=== PATIENT | male | born 1965 | race Caucasian/White ===

== ENCOUNTER 2016-12-05 04:19 | Emergency (ER) | payer OTHER ==
[~2016-12-05] VITALS: Ht 180.3 cm; Wt 83.9 kg
[~2016-12-05 04:19] MED LIST: CRESTOR20 MG PO; FENOFIBRIC ACI135 MG PO; HUMALOG100 U/ML; HYDROMORPHONE HY2 MG PO; MECLIZINE HCL25 MG PO; METFORMIN1000 MG PO; TRAMADOL50 MG PO; ZOFRAN ODT4 M1 SL
[2016-12-05] MEDS ORDERED: GEMFIBROZIL600 M1 PO (04:35)
--- NOTE | 2016-12-05 05:36 | CT SCAN REPORT ---
EXAMINATION: CT CERVICAL SPINE WITHOUT CONTRAST CLINICAL INFORMATION: Fall, neck pain COMPARISON: None. TECHNIQUE: Multidetector helical imaging was performed through the cervical spine. Coronal and sagittal reformatted images were created. DLP: 464.06 mGy-cm. FINDINGS: There is a scoliosis of the cervical spine which limits evaluation. There is straightening of the normal cervical lordosis. There is anatomic alignment of the vertebral bodies and posterior elements. Vertebral body heights are maintained. There is disc space narrowing at C5-C6. Multilevel endplate osteophytes are present, most prominently at C6-C7. Multilevel facet arthropathy is present, right greater than left. No evidence of acute fracture. No prevertebral soft tissue swelling. Visualized portions of the lung apices are described on separate dedicated chest CT. There is chronic appearing soft tissue calcification to the right of the cervicothoracic junction. The left thyroid gland is enlarged and heterogeneous, likely containing multiple nodules. IMPRESSION: Suboptimal assessment due to scoliosis. No definite acute findings. Multilevel degenerative changes.
--- NOTE | 2016-12-05 05:40 | ED MVC/FALL/TRAUMA COMPLAINT ---
History of Present Illness General Chief Complaint: Shoulder Injury Stated Complaint: S/P FALL AT WORK C/O RT SHOULDER PAIN Source: patient, old records, EMS Exam Limitations: no limitations Vital Signs & Intake/Output Vital Signs & Intake/Output Vital Signs Date Time Temp Pulse Resp B/P Pulse O2 O2 Flow FiO2 Ox Delivery Rate 12/05 0522 89 20 161/95 97 Room Air 12/05 0423 97.5 110 20 166/95 97 Room Air Allergies Coded Allergies: acetaminophen (From Percocet) (Intermediate, ITCHING 07/28/16) oxycodone (From Percocet) (Intermediate, ITCHING 07/28/16) Reconcile Medications FENOFIBRIC ACID (CHOLINE) (Fenofibric Acid) 135 MG CAPSULE.DR 1 TAB PO DAILY TRIGLYCERIDES (Reported) Gemfibrozil 600 MG TABLET 1 TAB PO BID DIRECTED (Reported) HYDROMORPHONE HCL (Hydromorphone Hydrochloride) 2 MG TABLET 1 TAB PO Q4 HRS NEEDED PRN PAIN (Reported) Insulin Lispro, Recombinant (Humalog) (Unknown Strength) CHARMAINE (Unknown Dose) DIABETES (Reported) Meclizine HCl 25 MG TABLET 1 TAB PO TIDPRN PRN vertigo METFORMIN HCL (Metformin) 1,000 MG TABLET 1 TAB PO BID DIABETES (Reported) Ondansetron (Zofran Odt) 4 MG TAB.RAPDIS 1 TAB SL TID PRN nausea Rosuvastatin Calcium (Crestor) 20 MG TABLET 1 TAB PO DAILY CHOLESTEROL ( Reported) TRAMADOL HCL (Tramadol) 50 MG TABLET 1-2 TAB PO Q6P PRN PAIN Triage Note: PT BIBA FROM WORK ([employer]) S/P MECHANICAL FALL FROM STANDING POSITION TO CONCRETE FLOOR AT APPROX 0300 THIS AM. PT DENIES LOC. ARRIVES WITH C-COLLAR IN PLACE AND SLING TO RT SHOULDER. DEFORMITY NOTED TO RT SHOULDER. PT STATES PMH OF RT CLAVICLE REMOVAL R/T CANCER HISTORY AT 13 MONTHS OLD. PT C/O TINGELING TO RT HAND, GOOD MOVEMENT TO FINGERS. DR RUBIN IN TO EVAL PT ON PT ARRIVAL TO ED. PAIN ON PALPATION TO RT SIDE OF NECK. Triage Nurses Notes Reviewed? yes Onset: Just prior to arrival Duration: minute(s):, constant, continues in ED Timing: recent history Severity: severe Injuries/Fall Location: back Method of Injury: direct blow, fall Loss of Consciousness: no loss of consciousness Modifying Factors: Worsens With: movement, palpation. Associated Symptoms: muscle spasms HPI: prior to admission patient lost balance on stairs and fell down one stair onto workbench striking his right upper back. He complains of limited range of motion of the right upper extremity severe right upper back and neck pain sharp constant worse with movement of right upper extremity nonradiating. He denies fever chills nausea vomiting diarrhea abdominal pain chest pain shortness breath headache dysuria rash bleeding change in sensory function change in bowel bladder loss consciousness Past History Travel History Traveled to [place] past 21 day No Medical History Any Pertinent Medical History? see below for history Cardiovascular: hyperlipidemia Gastrointestinal: pancreatitis Psychiatric: insomnia Endocrine: diabetes Cancer(s): UNKNOWN CA History of MRSA: No History of VRE: No History of CDIFF: No Surgical History Surgical History: none Psychosocial History Who do you live with Mother Services at Home None What is your primary language Rwandan Tobacco Use: Quit >30 days ago ETOH Use: denies use Illicit Drug Use: denies illicit drug use Family History Hx Contributory? No Review of Systems Review of Systems Constitutional: Reports: no symptoms. Eyes: Reports: no symptoms. Ears, Nose, Throat, Mouth: Reports: no symptoms. Respiratory: Reports: no symptoms. Cardiovascular: Reports: no symptoms. Gastrointestinal/Abdominal: Reports: no symptoms. Genitourinary: Reports: no symptoms. Musculoskeletal: Reports: see HPI, back pain. Skin: Reports: no symptoms. Neurological/Psychological: Reports: no symptoms. All Other Systems: Reviewed and Negative Physical Exam Physical Exam General Appearance: well developed/nourished, alert, awake, anxious, severe distress Head: atraumatic, normal appearance Eyes: Bilateral: normal appearance, PERRL, EOMI, normal inspection. Ears, Nose, Throat, Mouth: hearing grossly normal, moist mucous membrane Neck: normal inspection, supple, full range of motion, normal alignment, no midline tenderness Respiratory: normal breath sounds, no respiratory distress, quiet respiration Cardiovascular: regular rate/rhythm, normal peripheral pulses, norml femoral pulses equa Peripheral Pulses: 4+ carotid (R), 4+ carotid (L), 2+ radial (R), 2+ radial (L) Gastrointestinal: normal bowel sounds, soft, non-tender, no organomegaly Genital/Rectal: normal genital exam Back: normal inspection, no vertebral tenderness, R scapula tenderness Extremities: no ligament instability Neurologic/Psych: no motor/sensory deficits, awake, alert, oriented x 3, normal gait, normal mood/affect Skin: intact, normal color, warm/dry Core Measures ACS in differential dx? No Severe Sepsis Present: No Septic Shock Present: No Progress Differential Diagnosis: C/T/L spine injury, ext injury Plan of Care: Orders Procedure Date/time Status CT CHEST WO IV CONTRAST 12/05 0432 Active Diagnostic Imaging: Viewed by Me: CT Scan. Discussed w/RAD: CT Scan. Radiology Impression: no acute abnormality, no fracture, no dislocation Departure Departure Time of Disposition: 609 Disposition: HOME OR SELF CARE Condition: Stable Clinical Impression Primary Impression: Contusion, scapular region Qualifiers: Encounter type: initial encounter Laterality: right Qualified Code: S40.011A - Contusion of right shoulder, initial encounter Secondary Impressions: Fall due to stumbling Qualifiers: Encounter type: initial encounter Qualified Code: W01.0XXA - Fall on same level from slipping, tripping and stumbling without subsequent striking against object, initial encounter Referrals: BULMARO CHIU MD (PCP/Family) Departure Forms: Customer Survey Employee Industrial Accident General Discharge Information Prescriptions: Current Visit Scripts Hydromorphone HCl (Dilaudid) 1-2 TAB PO Q6-PRN PRN severe pain #15 TAB Ibuprofen 1 TAB PO Q6PRN PRN pain #50 TAB Baclofen 1-2 TAB PO TID PRN muscle strain #30 TAB
--- NOTE | 2016-12-05 05:48 | CT SCAN REPORT ---
EXAMINATION: CT CHEST WITHOUT CONTRAST CLINICAL INFORMATION: Fall, right scapular tenderness COMPARISON: 09/28/2014 TECHNIQUE: Multidetector volumetric CT imaging of the chest was done. Axial MIP volume rendering provided. Sagittal and coronal reformatted images were obtained. DLP: 570.11 mGy-cm. FINDINGS: LUNGS: There is subsegmental atelectasis in the right upper and lower lobes. No region of consolidation is present bilaterally. MEDIASTINUM: The left thyroid gland is enlarged, likely containing multiple nodules. There are subcentimeter mediastinal lymph nodes within the range of normal variation. Cardiac size is within normal limits; no pericardial effusion. Coronary artery calcifications are present. PLEURA: There is no pleural effusion. No pleural mass or thickening. AXILLA: No lymphadenopathy. UPPER ABDOMEN: Unremarkable. 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 No acute fracture is seen. Degenerative changes are noted in the spine. IMPRESSION: 1. No acute findings identified. 2. Enlarged left thyroid lobe. If not already performed, correlation with ultrasound is advised. 3. Coronary artery calcifications. Correlation with cardiac risk factors is recommended.
[2016-12-05] MEDS ORDERED: DILAUDID2 M1 PO (06:13)
[2016-12-05] MEDS ORDERED: BACLOFEN10 M1 PO (06:13)
[2016-12-05] MEDS ORDERED: IBUPROFEN800 M1 PO (06:13)
[2016-12-05 06:40] VITALS: BP 148/86
== END 2016-12-05 07:18 ==
LOC: ERH 04:19
DX: S40.011A Contusion of right shoulder, initial encounter (principal); W10.9XXA Fall (on) (from) unspecified stairs and steps, initial encounter
CPT/HCPCS: 96374; 96375; 96376; J3360

== ENCOUNTER 2018-01-05 10:21 | Observation (INO) | payer OTHER ==
[~2018-01-05] VITALS: Ht 180.3 cm; Wt 86.2 kg
[~2018-01-05 10:21] MED LIST changes: +BACLOFEN10 M1 PO; +DILAUDID2 M1 PO; +GEMFIBROZIL600 M1 PO; +IBUPROFEN800 M1 PO; +METFORMIN HCL1000 M1 PO; -METFORMIN1000 MG PO
[2018-01-05 11:26] LABS: ABSOLUTE BASOPHIL COUNT 0 /CUMM (0.0-0.2); ABSOLUTE EOSINOPHIL COUNT 0.4 /CUMM (0.0-0.7); ABSOLUTE GRANULOCYTE CT 4.3 /CUMM (1.4-6.5); ABSOLUTE LYMPH COUNT 2.4 /CUMM (1.2-3.4); ABSOLUTE MONOCYTE COUNT 0.4 /CUMM (0.10-0.60); BASOPHIL % 0.4 % (0.0-2.0); EOSINOPHIL % 5.7 % (0-5); GRANULOCYTE % 56.8 % (42.2-75.2); HEMATOCRIT 42.9 % (42-52); MEAN CORPUSCULAR HGB 28.1 PG (27.0-31.0); MEAN CORPUSCULAR HGB CONC 33.9 G/DL (33.0-37.0); MEAN CORPUSCULAR VOLUME 82.7 FL (80.0-94.0); MEAN PLATELET VOLUME 8.4 FL (7.4-10.4); PLATELET COUNT 220 /CUMM (130-400); RBC DISTRIBUTION WIDTH 13.1 % (11.5-14.5); RED BLOOD CELL CT 5.19 /CUMM (4.70-6.10); WHITE BLOOD CELL COUNT 7.6 /CUMM (4.8-10.8)
[2018-01-05 11:38] LABS: PTT 29 SEC (25-37)
--- NOTE | 2018-01-05 13:10 | ED GENERAL ADULT ---
History of Present Illness General Chief Complaint: General Adult Stated Complaint: PT HAS MANY PAIN COMPLAINTS/CHRONIC Source: patient Exam Limitations: no limitations Vital Signs & Intake/Output Vital Signs & Intake/Output ED Intake and Output 01/08 0000 01/07 1200 Intake Total 900 Output Total 500 Balance 400 Intake, IV 600 Intake, Oral 300 Number 0 Bowel Movements Output, Urine 500 Allergies Coded Allergies: acetaminophen (From Percocet) (Intermediate, ITCHING 07/28/16) oxycodone (From Percocet) (Intermediate, ITCHING 07/28/16) Reconcile Medications Cholecalciferol (Vitamin D3) 1,000 UNIT TABLET 1 TAB PO DAILY VITAMIN SUPPORT (Reported) Dexamethasone 4 MG TABLET 4 MG PO BID Steroid pack . Gabapentin 300 MG CAPSULE 1 CAP PO AT BEDTIME PAIN . Insulin Degludec (Tresiba Flextouch U-200) 200 UNIT/ML (3 ML) INSULN.PEN DIABETES (Reported) Lisinopril 40 MG TABLET 1 TAB PO DAILY HEART (Reported) Metformin HCl 1,000 MG TABLET 1 TAB PO BID DIABETES (Reported) Pregabalin (Lyrica) 50 MG CAPSULE 50 MG PO TID Neuropathic pain . Triage Note: 52 YO MALE TO TRIAGE C/O PAIN TO NECK AND "I HAVE A R ARM, IT DOESNT WORK" STATES ARM HAS BEEN LIKE THAT FOR APPROX 1 YEARS, STATES HX OF DISC PROBLEMS IN HIS NECK. STATES HAS BEEN SEEING ORTHO WHO WANTS HIM TO SEE A NEUROSURGEON BUT HE CANNOT WAIT D/T THE PAIN. PA IN TRIAGE TO SEE PT. Triage Nurses Notes Reviewed? yes Onset: Gradual Duration: week(s): Timing: recent history Severity: moderate HPI: 52yo male presents to ED complaining of neck pain, back pain, headache worsening over the past few weeks. Patient states he's been seeing orthopedic and is in touch with the neurologist for the pain is so severe. 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 Patient states that over time he has been unable to use his right arm. Patient also reports increasing neck and back pain related to "shifting of his spine". Patient has not been able to use his right arm for years however reports that over the past 2 weeks the pain is worsening. Patient denies recent fall or injury, visual changes, abdominal pain, vomiting. (Kimberly Jo-Ann HARGROVE) Past History Travel History Traveled to [place] past 21 day No Medical History Any Pertinent Medical History? see below for history Cardiovascular: hyperlipidemia Gastrointestinal: pancreatitis Psychiatric: insomnia Endocrine: diabetes Cancer(s): UNKNOWN CA History of MRSA: No History of VRE: No History of CDIFF: No Surgical History Surgical History: none Psychosocial History Who do you live with Mother Services at Home None What is your primary language Setswana Tobacco Use: Never used Family History Hx Contributory? No (Jo-Ann Manjarrez) Review of Systems Review of Systems Constitutional: Reports: no symptoms. EENTM: Reports: no symptoms. Respiratory: Reports: no symptoms. Cardiovascular: Reports: no symptoms. GI: Reports: no symptoms. Genitourinary: Reports: no symptoms. Musculoskeletal: Reports: see HPI. Skin: Reports: no symptoms. Neurological/Psychological: Reports: see HPI. Hematologic/Endocrine: Reports: no symptoms. Immunologic/Allergic: Reports: no symptoms. All Other Systems: Reviewed and Negative (Jo-Ann Manjarrez) Physical Exam Physical Exam General Appearance: well developed/nourished, no apparent distress, alert, awake Head: atraumatic, normal appearance Eyes: Bilateral: normal appearance. Ears, Nose, Throat: hearing grossly normal Neck: right healed surgical incisions, right lateral malalignment of spine, tenderness to c-spine Respiratory: normal breath sounds, no respiratory distress, lungs clear Cardiovascular: regular rate/rhythm Peripheral Pulses: 2+ radial (R), 2+ radial (L) Gastrointestinal: normal bowel sounds, soft, non-tender, no organomegaly Back: normal inspection Extremities: limited ROM to RUE, extremity with intact capillary refill, no cyanosis or discoloration, diminished sensation to distal extremity in glove distribution Neurologic/Psych: awake, alert, oriented x 3, diminished sensation in glove distribution to right upper extremity Skin: intact, normal color, warm/dry (Jo-Ann Manjarrez) Core Measures ACS in differential dx? No CVA/TIA Diagnosis: No Sepsis Present: No Sepsis Focused Exam Completed? No (Rosendo Maldonado DO) Progress Differential Diagnoses I considered the following diagnoses in my evaluation of the patient: [ Subclavian steel syndrome, arterial insufficiency, spinal stenosis, cervical spine fracture, spinal cord injury, nerve compression, ICH] Diagnostic Imaging: Viewed by Me: CT Scan. Discussed w/RAD: CT Scan. Radiology Impression: PATIENT: LORRAINE HOSKINS PRESENT AGE: 52 PATIENT ACCOUNT NO: [id number] : 65 LOCATION: ER ORDERING PHYSICIAN: Jerod HARGROVE SERVICE DATE: 01/05/18 EXAM TYPE: CAT - CT HEAD WO IV CONTRAST EXAMINATION: CT HEAD WITHOUT CONTRAST CLINICAL INFORMATION: Headache COMPARISON: CT head from 07/04/2011 TECHNIQUE: Contiguous axial imaging was performed from the skull base to vertex without intravenous administration of contrast. DLP: 1255 mGy-cm FINDINGS: There is no evidence of acute intracranial hemorrhage or evolving territorial infarction. No abnormal mass effect or midline shift is seen. Garrett to white matter differentiation is well preserved. No extra-axial fluid collections are identified. The ventricles are normal in size. There is no abnormal attenuation within the brain parenchyma. The osseous structures and soft tissues are unremarkable. The orbits are unremarkable. Opacification of right posterior ethmoid air cells. Other visualized paranasal sinuses are clear. No mastoid effusion. IMPRESSION: No acute intracranial pathology. Mild inflammatory paranasal sinus disease with opacification of the right posterior ethmoid air cells. DICTATED BY: Layne López MD DATE/TIME DICTATED:01/05/181327 SCHOOL OPERATIONS MANAGER:KAYE DATE/ TIME TRANSCRIBED:01/05/181327 CONFIDENTIAL, DO NOT COPY WITHOUT APPROPRIATE AUTHORIZATION. <Electronically signed in Other Vendor System> SIGNED BY: Layne López MD 01/05/18 1343, PATIENT: LORRAINE HOSKINS PRESENT AGE: 52 PATIENT ACCOUNT NO: [id number] : 65 LOCATION: [facility] ORDERING PHYSICIAN: Jerod HARGROVE SERVICE DATE: 01/05/18 EXAM TYPE : CAT - CT UPPER EXT ANGIOGRAM EXAMINATION: CT ANGIOGRAM UPPER EXTREMITY, right side CLINICAL INFORMATION: 52-year-old male patient with right arm weakness and right arm discoloration. Cyanotic extremity. COMPARISON: None applicable. TECHNIQUE: 125 Optiray 350 intravenous contrast. Initial scans were obtained of the aortic arch following bolus injection of contrast for timing purposes. The patient's right shoulder was abducted and the right elbow flexed 90 degrees. Scans were obtained with particular reference to the arterial circulation of the right upper extremity. Raw data was sent to the 3-D lab for 3-D MIP volume reconstructions. DLP: 537 mGy-cm FINDINGS: Vasculature: 1. Brachiocephalic trunk : Distal to the origin of the artery there is complete absence of flow at the level of the sternal manubrial joint. Intraluminal clot formation is seen. 2. Internal thoracic artery: Reconstituted. 3. Right subclavian artery: There is no flow in the proximal right subclavian artery. Extensive calcific plaque is present. 4. Right common carotid artery: Severe calcific plaques and severe stenosis from the origin to the level of the hyoid bone. Contrast is seen to flow in an attenuated right internal carotid artery into the brain. 5. Right vertebral artery: Absent flow in the prespinal vertebral artery with reconstitution in the intraspinal portion 6. Right thyrocervical trunk: 7. Transverse cervical artery: Nonopacified. 8. Right axillary artery: Flow is reconstituted. 9. Right brachial artery: Well patent. 10. Radial artery: Well patent. 11. Ulnar artery: Proximal portion well patent. Distal portion decreased to absent flow. 12. Anterior and posterior interosseous arteries: Patent. Other: Visualized portions of the pulmonary arteries are well patent showing no clot formation. The left vertebral artery is dominant. The right lobe the thyroid gland is absent. The left lobe is enlarged containing numerous thyroid nodules. Lungs are clear. Visualized portions of the intracranial contents are normal. Most of the right clavicle is absent. Numerous calcified lymph nodes are present in the right supraclavicular region. IMPRESSION: Granted, due to the abduction of the right upper extremity, there is compression applied to the right subclavian artery. This accentuates lack of flow in the subclavian and brachiocephalic trunk. Severe compromise of blood flow in the right subclavian artery is present in the artery contains numerous calcific plaques. The axillary , brachial, radial and ulnar arteries are reconstituted with normal flow although the flow in the ulnar artery is diminished. Interosseous arteries appear patent. DICTATED BY: Zan Cochran MD DATE/TIME DICTATED:01/05/181441 SCHOOL OPERATIONS MANAGER:KAYE DATE/TIME TRANSCRIBED:01/05/181441 CONFIDENTIAL, DO NOT COPY WITHOUT APPROPRIATE AUTHORIZATION. <Electronically signed in Other Vendor System> SIGNED BY: Zan Cochran MD 01/05/18 1530 Initial ED EKG: sinus rhythm @90bpm,RBBB, LAFB, nonspecific ST changes Prior EKG: unchanged (07/28/16) (Kimberly HARGROVE,Jo-Ann Willard) Plan of Care: Orders Procedure Date/time Status FingerStick- Glucose 01/05 1328 Active TROPONIN LEVEL 01/05 1039 Complete PARTIAL THROMBOPLASTIN TIME 01/05 1039 Complete PROTHROMBIN TIME 01/05 1039 Complete COMPREHENSIVE METABOLIC PANEL 01/05 1039 Complete CBC WITHOUT DIFFERENTIAL 01/05 1039 Complete EKG 01/05 1039 Active Laboratory Tests 01/05/18 1120: Anion Gap 12, Estimated GFR > 60, BUN/Creatinine Ratio 23.3, Glucose 341 H, Calcium 10.3 H, Total Bilirubin 0.6, AST 18, ALT 25, Alkaline Phosphatase 92, Troponin I < 0.01, Total Protein 7.1, Albumin 4.2, Globulin 2.9, Albumin/ Globulin Ratio 1.4, PT 11.0, INR 1.05, APTT 29, CBC w Diff NO MAN DIFF REQ, RBC 5.19, MCV 82.7, MCH 28.1, MCHC 33.9, RDW 13.1, MPV 8.4, Gran % 56.8, Lymphocytes % 31.7, Monocytes % 5.4, Eosinophils % 5.7 H, Basophils % 0.4, Absolute Granulocytes 4.3, Absolute Lymphocytes 2.4, Absolute Monocytes 0.4, Absolute Eosinophils 0.4, Absolute Basophils 0 Spoke with vascular regarding this patient and his abnormal CT scan findings, they will send PA to examine the patient. Surgical PA Jaden present to see and evaluate patient. Radial and ulnar Doppler studies show intact distal pulses to right upper extremity. Extremity shows good skin coloration. Per vascular consult, this extremity is not acutely vascularly compromised, CT scan with evidence for chronic vascular conditions. Given patient's recent worsening of symptoms this patient requires cervical spine MRI and neurosurgical consult for possible acute cervical disc pathology. This patient is requiring IV pain medications, despite several doses of IV Dilaudid patient is in persistent pain. Patient suffered comfortable going home given this persistent pain. The patient was discussed with Dr. Maldonado, Dr. Maldonado present to see and evaluate patient. He recommends inpatient observation for MRI and neurosurgical consult. Dr. broderick spoke with Dr. Coronel regarding this patient's general medicine observation. (Jo-Ann Manjarrez) (Rosendo Maldonado DO) Departure Departure Disposition: STILL A PATIENT Condition: Stable Clinical Impression Primary Impression: Intractable pain Referrals: Michael Preston MD (PCP/Family) Departure Forms: Customer Survey General Discharge Information Prescriptions: Current Visit Scripts Gabapentin 1 CAP PO AT BEDTIME #30 CAP . Pregabalin (Lyrica) 50 MG PO TID #90 CAP . Dexamethasone 4 MG PO BID #3 TAB . (Jo-Ann Manjarrez) Observation Note Spoke With: Adriel LEWIS,Rosariohenrique Physician Advisor Notified: SUNITHA LEWIS,GABBY Ho Place Patient In: Non-ED OBS Care Area Rationale for Observation: My rational for observation is as follows [she needs admission for IV pain medication, consider neurosurgical consultation, inpatient MRI. He was unable to be sent home to the severity of his pain]. PA/SCHOOL OPERATIONS MANAGER Co-Sign Statement Statement: ED Attending supervision documentation- [X] I saw and evaluated the patient. I have also reviewed all the pertinent lab results and diagnostic results. I agree with the findings and the plan of care as documented in the PA's/SCHOOL OPERATIONS MANAGER's documentation. [] I have reviewed the ED Record and agree with the PA's/SCHOOL OPERATIONS MANAGER's documentation. [] Additions or exceptions (if any) to the PAs/SCHOOL OPERATIONS MANAGER's note and plan are summarized below: [] (Rosendo Maldonado DO) Critical Care Note Critical Care Note Critical Care Time: non-applicable (Rosendo Maldonado DO)
--- NOTE | 2018-01-05 13:43 | CT SCAN REPORT ---
EXAMINATION: CT HEAD WITHOUT CONTRAST CLINICAL INFORMATION: Headache COMPARISON: CT head from 07/04/2011 TECHNIQUE: Contiguous axial imaging was performed from the skull base to vertex without intravenous administration of contrast. DLP: 1255 mGy-cm FINDINGS: There is no evidence of acute intracranial hemorrhage or evolving territorial infarction. No abnormal mass effect or midline shift is seen. Garrett to white matter differentiation is well preserved. No extra-axial fluid collections are identified. The ventricles are normal in size. There is no abnormal attenuation within the brain parenchyma. The osseous structures and soft tissues are unremarkable. The orbits are unremarkable. Opacification of right posterior ethmoid air cells. Other visualized paranasal sinuses are clear. No mastoid effusion. IMPRESSION: No acute intracranial pathology. Mild inflammatory paranasal sinus disease with opacification of the right posterior ethmoid air cells.
[2018-01-05] MEDS ORDERED: LISINOPRIL40 M1 PO (14:11)
[2018-01-05] MEDS ORDERED: TRESIBA FL200 UNIT/1 SC (14:12)
[2018-01-05] MEDS ORDERED: VITAMIN D31000 UNI2 PO (14:12)
--- NOTE | 2018-01-05 15:30 | CT SCAN REPORT ---
EXAMINATION: CT ANGIOGRAM UPPER EXTREMITY, right side CLINICAL INFORMATION: 52-year-old male patient with right arm weakness and right arm discoloration. Cyanotic extremity. COMPARISON: None applicable. TECHNIQUE: 125 Optiray 350 intravenous contrast. Initial scans were obtained of the aortic arch following bolus injection of contrast for timing purposes. The patient's right shoulder was abducted and the right elbow flexed 90 degrees. Scans were obtained with particular reference to the arterial circulation of the right upper extremity. Raw data was sent to the 3-D lab for 3-D MIP volume reconstructions. DLP: 537 mGy-cm FINDINGS: Vasculature: 1. Brachiocephalic trunk: Distal to the origin of the artery there is complete absence of flow at the level of the sternal manubrial joint. Intraluminal clot formation is seen. 2. Internal thoracic artery: Reconstituted. 3. Right subclavian artery: There is no flow in the proximal right subclavian artery. Extensive calcific plaque is present. 4. Right common carotid artery: Severe calcific plaques and severe stenosis from the origin to the level of the hyoid bone. Contrast is seen to flow in an attenuated right internal carotid artery into the brain. 5. Right vertebral artery: Absent flow in the prespinal vertebral artery with reconstitution in the intraspinal portion 6. Right thyrocervical trunk: 7. Transverse cervical artery: Nonopacified. 8. Right axillary artery: Flow is reconstituted. 9. Right brachial artery: Well patent. 10. Radial artery: Well patent. 11. Ulnar artery: Proximal portion well patent. Distal portion decreased to absent flow. 12. Anterior and posterior interosseous arteries: Patent. Other: Visualized portions of the pulmonary arteries are well patent showing no clot formation. The left vertebral artery is dominant. The right lobe the thyroid gland is absent. The left lobe is enlarged containing numerous thyroid nodules. Lungs are clear. Visualized portions of the intracranial contents are normal. Most of the right clavicle is absent. Numerous calcified lymph nodes are present in the right supraclavicular region. IMPRESSION: Granted, due to the abduction of the right upper extremity, there is compression applied to the right subclavian artery. This accentuates lack of flow in the subclavian and brachiocephalic trunk. Severe compromise of blood flow in the right subclavian artery is present in the artery contains numerous calcific plaques. The axillary, brachial, radial and ulnar arteries are reconstituted with normal flow although the flow in the ulnar artery is diminished. Interosseous arteries appear patent.
--- NOTE | 2018-01-05 18:35 | Cons- Vascular Surgery ---
General Information and HPI Consulting Request Date of Consult: 01/05/18 Requested By: Emergency department Reason for Consult: Increased right arm pain since with documented CTA of right upper extremity demonstrating extensive subclavian plaque causing possible occlusion Exam Limitations: clinical condition History of Present Illness: Mr. Burks is a 52-year-old male known to Dr. Yang, Dr. Clarke, Dr. 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 He was seen in 2012 for similar symptoms at which time he was transferred to [place] for neurosurgical evaluation transfer resulted only in a carpal tunnel release of the right wrist. However since then he has had a worsening debilitating right upper extremity weakness and numbness which has been well documented by Dr. Clarke. He currently presents to the emergency room today with worsening right upper extremity pain or the entire right arm. He states that his current right upper extremity weakness is something that has been there for many years. Evaluation by the emergency room staff revealed no palpable pulses so and right upper extremity CTA was obtained which demonstrated extensive plaque and narrowing of right subclavian artery. Vascular surgery was consult for these findings Allergies/Medications Allergies: Coded Allergies: acetaminophen (From Percocet) (Intermediate, ITCHING 07/28/16) oxycodone (From Percocet) (Intermediate, ITCHING 07/28/16) Home Med List: Cholecalciferol (Vitamin D3) 1,000 UNIT TABLET 1 TAB PO DAILY VITAMIN SUPPORT (Reported) Insulin Degludec (Tresiba Flextouch U-200) 200 UNIT/ML (3 ML) INSULN.PEN DIABETES (Reported) Lisinopril 40 MG TABLET 1 TAB PO DAILY HEART (Reported) Metformin HCl 1,000 MG TABLET 1 TAB PO BID DIABETES (Reported) Past History Medical History Cardiovascular: hyperlipidemia Gastrointestinal: pancreatitis Psychiatric: insomnia Endocrine: diabetes Cancer(s): UNKNOWN CA Surgical History Pertinent Surgical History: 1 Psychosocial History Services at Home: None Exam & Diagnostic Data Vital Signs and I&O Vital Signs Date Time Temp Pulse Resp B/P B/P Pulse O2 O2 Flow FiO2 Mean Ox Delivery Rate 01/05 1759 97.2 96 18 102/62 95 Room Air 01/05 1510 98.4 83 18 156/96 92 Room Air 01/05 1332 Room Air 01/05 1033 98.2 96 18 118/76 98 Room Air Intake & Output 01/05 1600 01/05 0800 01/05 0000 01/04 1600 01/04 0801/04 0000 Intake Total Output Total Balance Patient 190 lb Weight Weight Reported by Patient Measurement Method Physical Exam General Appearance: alert, awake, moderate distress Head: normal appearance Eyes: Bilateral: PERRL. Neck: extensive scarring to the right neck and chest and scapula secondary to previous radical neck dissection for malignant tumor as a child Respiratory: lungs clear Cardiovascular: regular rate/rhythm Gastrointestinal: soft, non-tender Extremities: glovelike distribution in sensate right mid forearm to tips of fingers, 2 over 5 elbow flexion, flaccid right wrist extension, Doppler radial/ ulnar/brachial pulses, color and warmth to right upper extremity similar to left Last 24 Hours of Labs: Laboratory Tests 01/05 1120 Chemistry Sodium (137 - 145 mmol/L) 138 Potassium (3.5 - 5.1 mmol/L) 4.6 Chloride (98 - 107 mmol/L) 95 L Carbon Dioxide (22 - 30 mmol/L) 31 H Anion Gap (5 - 16) 12 BUN (9 - 20 mg/dL) 21 H Creatinine (0.7 - 1.2 mg/dL) 0.9 Estimated GFR (>60 ml/min) > 60 BUN/Creatinine Ratio (7 - 25 %) 23.3 Glucose (65 - 99 mg/dL) 341 H Calcium (8.4 - 10.2 mg/dL) 10.3 H Total Bilirubin (0.2 - 1.3 mg/dL) 0.6 AST (17 - 59 U/L) 18 ALT (21 - 72 U/L) 25 Alkaline Phosphatase (< 127 U/L) 92 Troponin I (<0.11 ng/ml) < 0.01 Total Protein (6.3 - 8.2 g/dL) 7.1 Albumin (3.5 - 5.0 g/dL) 4.2 Globulin (1.9 - 4.2 gm/dL) 2.9 Albumin/Globulin Ratio (1.1 - 2.2 %) 1.4 Coagulation PT (9.4 - 12.5 SEC) 11.0 INR (0.90 - 1.17) 1.05 APTT (25 - 37 SEC) 29 Hematology CBC w Diff NO MAN DIFF REQ WBC (4.8 - 10.8 /CUMM) 7.6 RBC (4.70 - 6.10 /CUMM) 5.19 Hgb (14.0 - 18.0 G/DL) 14.6 Hct (42 - 52 %) 42.9 MCV (80.0 - 94.0 FL) 82.7 MCH (27.0 - 31.0 PG) 28.1 MCHC (33.0 - 37.0 G/DL) 33.9 RDW (11.5 - 14.5 %) 13.1 Plt Count (130 - 400 /CUMM) 220 MPV (7.4 - 10.4 FL) 8.4 Gran % (42.2 - 75.2 %) 56.8 Lymphocytes % (20.5 - 51.1 %) 31.7 Monocytes % (1.7 - 9.3 %) 5.4 Eosinophils % (0 - 5 %) 5.7 H Basophils % (0.0 - 2.0 %) 0.4 Absolute Granulocytes (1.4 - 6.5 /CUMM) 4.3 Absolute Lymphocytes (1.2 - 3.4 /CUMM) 2.4 Absolute Monocytes (0.10 - 0.60 /CUMM) 0.4 Absolute Eosinophils (0.0 - 0.7 /CUMM) 0.4 Absolute Basophils (0.0 - 0.2 /CUMM) 0 Imaging Results: SERVICE DATE: 01/05/18 EXAM TYPE: CAT - CT UPPER EXT ANGIOGRAM EXAMINATION: CT ANGIOGRAM UPPER EXTREMITY, right side CLINICAL INFORMATION: 52-year-old male patient with right arm weakness and right arm discoloration. Cyanotic extremity. COMPARISON: None applicable. TECHNIQUE: 125 Optiray 350 intravenous contrast. Initial scans were obtained of the aortic arch following bolus injection of contrast for timing purposes. The patient's right shoulder was abducted and the right elbow flexed 90 degrees. Scans were obtained with particular reference to the arterial circulation of the right upper extremity. Raw data was sent to the 3-D lab for 3-D MIP volume reconstructions. DLP: 537 mGy-cm FINDINGS: Vasculature: 1. Brachiocephalic trunk: Distal to the origin of the artery there is complete absence of flow at the level of the sternal manubrial joint. Intraluminal clot formation is seen. 2. Internal thoracic artery: Reconstituted. 3. Right subclavian artery: There is no flow in the proximal right subclavian artery. Extensive calcific plaque is present. 4. Right common carotid artery: Severe calcific plaques and severe stenosis from the origin to the level of the hyoid bone. Contrast is seen to flow in an attenuated right internal carotid artery into the brain. 5. Right vertebral artery: Absent flow in the prespinal vertebral artery with reconstitution in the intraspinal portion 6. Right thyrocervical trunk: 7. Transverse cervical artery: Nonopacified. 8. Right axillary artery: Flow is reconstituted. 9. Right brachial artery: Well patent. 10. Radial artery: Well patent. 11. Ulnar artery: Proximal portion well patent. Distal portion decreased to absent flow. 12. Anterior and posterior interosseous arteries: Patent. Other: Visualized portions of the pulmonary arteries are well patent showing no clot formation. The left vertebral artery is dominant. The right lobe the thyroid gland is absent. The left lobe is enlarged containing numerous thyroid nodules. Lungs are clear. Visualized portions of the intracranial contents are normal. Most of the right clavicle is absent. Numerous calcified lymph nodes are present in the right supraclavicular region. IMPRESSION: Granted, due to the abduction of the right upper extremity, there is compression applied to the right subclavian artery. This accentuates lack of flow in the subclavian and brachiocephalic trunk. Severe compromise of blood flow in the right subclavian artery is present in the artery contains numerous calcific plaques. The axillary, brachial, radial and ulnar arteries are reconstituted with normal flow although the flow in the ulnar artery is diminished. Interosseous arteries appear patent. DICTATED BY: Zan Cochran MD DATE/TIME DICTATED:01/05/181441 ELECTRIC ORGAN ASSEMBLER AND CHECKER:KAYE DATE/TIME TRANSCRIBED:01/05/181441 Assessment/Plan Assessment/Plan Mr. Burks is a 52-year-old male with a known documented history of right artery narrowing and plaque formation secondary to extensive radical neck dissection for malignant tumor as a child. His vascular health has been known in documented by Dr. Yang who has referred this patient to Dr. Clarke for known cervical stenosis. This case was discussed with Dr. Strong who based on imaging and my physical exam believes that that this is not a limb that is compromised vascularly. This does however present more like an exacerbation of his known cervical stenosis which could be addressed with MRI of the cervical spine. Relative to his vascular diagnosis Dr. delgado and recommends aspirin twice a day prevention and follow-up with neurosurgery for his probable cervical stenosis exacerbation. Consult Acknowledgment - Thank you for your consult request.
--- NOTE | 2018-01-06 00:28 | History & Physical ---
Ivette LEWIS,Jennifer 01/06/18 0028: General Information and HPI MD Statement: I have seen and personally examined LORRAINE HOSKINS and documented this H&P. The patient is a 52 year old M who presented with a patient stated chief complaint of [neck pain, right arm weakness]. Source of Information: patient, old records Exam Limitations: clinical condition History of Present Illness: 52 years old male with past medical history of IDDM, hypertriglyceridemia, multiple episodes of pancreatitis, TORIN, and history of right clavicle removal and chest wall reconstruction for malignant tumor as a child, comes to the ED complaining of worsening pain in his neck and the back of his head, 08/25, for which the patient was prescribed dilaudid by . Patient reports not using the dilaudid at home. He also complains of progressive weakness of his right arm. Patient follow-up with orthopedic Dr. Garcia , and also he see a neurosurgeon in-year-old however he is trying to see a new neurosurgeon in [place] to find out about possible surgical treatment of his condition, pt reports arked worsening of his RUE weakness, currently he is having troubles doing his ADL as dressing and eating using his right arm, he lives home alone and doesn't have any aid Reports being noncompliant with his antidiabetic home meds, his blood sugar is not controlled and he complains of bilateral numbness of his lower extremity. Physical course: Vital signs within normal limits Labs were significant for normal C BC, sodium and potassium within normal limits , glucose 341, calcium 10.3 CTA showed clot in the right subclavian and brachiocephalic artery, with a new calcified plaque Vascular surgery saw the patient in the ED they recommend to get MRI of cervical spine, aspirin 3 times a day, follow-up with neurosurgery Allergies/Medications Allergies: Coded Allergies: acetaminophen (From Percocet) (Intermediate, ITCHING 07/28/16) oxycodone (From Percocet) (Intermediate, ITCHING 07/28/16) Home Med list Cholecalciferol (Vitamin D3) 1,000 UNIT TABLET 1 TAB PO DAILY VITAMIN SUPPORT (Reported) Insulin Degludec (Tresiba Flextouch U-200) 200 UNIT/ML (3 ML) INSULN.PEN DIABETES (Reported) Lisinopril 40 MG TABLET 1 TAB PO DAILY HEART (Reported) Metformin HCl 1,000 MG TABLET 1 TAB PO BID DIABETES (Reported) Past History Travel History Traveled to [place] past 21 day No Medical History Cardiovascular: hyperlipidemia Gastrointestinal: pancreatitis Psychiatric: insomnia Endocrine: diabetes Cancer(s): UNKNOWN CA History of MRSA: No History of VRE: No History of CDIFF: No Surgical History Surgical History: none Past Family/Social History Psychosocial History Services at Home: None Review of Systems Review of Systems Constitutional: Reports: malaise, weakness. Cardiovascular: Denies: no symptoms. Respiratory: Denies: no symptoms, cough, hemoptysis, orthopnea, short of breath. GI: Denies: abdominal pain, bloating, diarrhea, melena, nausea, vomiting. Musculoskeletal: Reports: see HPI, back pain, muscle pain. Skin: Denies: no symptoms. Exam & Diagnostic Data Last 24 Hrs of Vital Signs/I&O Vital Signs Date Time Temp Pulse Resp B/P B/P Pulse O2 O2 Flow FiO2 Mean Ox Delivery Rate 01/05 1759 97.2 96 18 102/62 95 Room Air 01/05 1510 98.4 83 18 156/96 92 Room Air 01/05 1332 Room Air 01/05 1033 98.2 96 18 118/76 98 Room Air Intake & Output 01/06 0800 01/06 0000 01/05 1600 Intake Total Output Total Balance Patient 190 lb Weight Weight Reported by Patient Measurement Method Physical Exam General Appearance Alert, Oriented X3, Cooperative, Mild Distress Skin No Rashes, No Breakdown, No Significant Lesion HEENT Atraumatic, PERRLA, EOMI, Mucous Membr. moist/pink Neck very stiff with scar of old graft Cardiovascular Normal S1, Normal S2, No Murmurs Lungs Clear to Auscultation Abdomen Normal Bowel Sounds, Soft, No Tenderness Neurological Normal Speech, right UL weakness power is 2/5 loss of sensation, bilateral LE loss of sensation, motor power intact Extremities No Clubbing, No Cyanosis, No Edema Vascular weak right radial pulses Sepsis Peripheral Pulse Location: Dorsalis Pedis Assessment/Plan Assessment: 52 years old male with past medical history of IDDM, hypertriglyceridemia, multiple episodes of pancreatitis, TORIN, and history of right clavicle removal and chest wall reconstruction for malignant tumor as a child, comes to the ED complaining of worsening pain in his neck and the back of his head, 08/25, for which the patient was prescribed dilaudid by Dr.Moll, #Right subclavian and brachiocephalic occlusion: CTA showed clot in the right subclavian and brachiocephalic artery, with a new calcified plaque Vascular surgery saw the patient in the ED they recommend to get MRI of cervical spine, aspirin 2 times a day, follow-up with neurosurgery ObserveThe patient on Gen. medical floor Pain control with IV Dilaudid 1 mg every 3 when necessary Start Lyrica 50 mg 3 times a day PT consult in the a.m. Neurosurgery consult in the a.m. Vitals every shift #Insulin dependent Diabetes DC metformin Insulin sliding scale Fingerstick glucose Full code DVT prophylaxis with subcutaneous Lovenox Consistent carbohydrate diet As Ranked By This Provider Problem List: 1. Intractable pain 2. Diabetes Core Measures/Misc (08/02) Acute Coronary Syndrome ACS Diagnosis: No Congestive Heart Failure Congestive Heart Failure Diagnosis No Cerebrovascular Accident CVA/TIA Diagnosis: No VTE (View Protocol) VTE Risk Factors Age>40 No Mechanical VTE Prophylaxis d/t N/A MechProphylax Ordered No VTE Pharm Prophylaxis d/t NA PharmProphylax ordered Sepsis (View protocol) Sepsis Present: No Adriel LEWIS, [facility] 01/06/18 0215: Attending MD Review Statement Attending Statement Attending MD Statement: examined this patient, discuss w/resident/PA/DAIRY DEPARTMENT MANAGER, agreed w/resident/PA/DAIRY DEPARTMENT MANAGER, reviewed images, amended to note Attending Assessment/Plan: 52 yo M with h/o DM with neuropathy, hyper TG, radical dissection of right clavicle and 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 Patient has been following with Neurosurgery [facility], Vascular and Ortho [facility], but no definitive treatment yet. He has been evaluated at [facility] and they denied any acute intervention given high risk of surgery and permanent damage. On ER eval, he had no palpable pulse, dopplerable pulse+, CTA showed extensive plaque and narrowing of right subclavian artery Vascular was consulted, they think it is exacerbation of his cervical stenosis. VSS. Right upper extremity: power 1-2/5, loss of sensation right forearm. Labs glucose 341, calcium 10.3. Trop neg. Head CT: no acute pathology. CTA upper extremity severe compromise of blood flow in right subclavian artery and numerous calcific plaques present. EKG: SR, RBBB, LAFB, no acute changes. Assessment and plan: 1. Chronic right upper extremity weakness and pain 2. Exacerbation of cervical stenosis 3. Right subclavian artery stenosis and calcific plaques 4. History of diabetes with neuropathy 5. H/o malignant neck tumor resection - 23 hour observation on general medicine - Neurochecks - Initiate lyrica TID - Pain management with motrin and dilaudid - MRI cervical spine - Neurosurgery consult - Vascular consult - Aspirin BID - PT/OT therapy - Diabetes management - Resume lisinopril DVT ppx Lovenox. Full code. Observation Initial Note - I have personally examined LORRAINE HOSKINS on 01/06/18 at 0216. The disposition of LORRAINE HOSKINS is uncertain at this time and before a determination can be made, he requires a period of observation for the following reasons [Acute on chronic neck pain, with possible worsening of cervical stenosis.] Gurpreet Rhodes 01/06/18 0504: Resident Review Statement Resident Statement: examined this patient, discussed with healthcare administration internship, agreed with healthcare administration internship, reviewed EMR data (avail), discussed with nursing, discussed with case mgmt, reviewed images, amended to note Other Findings: This is 52 years old male with medical history of IDDM, hypertriglyceridemia, multiple episodes of pancreatitis, TORIN, and surgical history of extensive radical dissection of right clavicle 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 Presented to the emergency department due to complaining of worsening pain in his neck and the back of his head. he still c/o his worsening debilitating right upper extremity weakness and numbness. CTA was obtained which demonstrated extensive plaque and narrowing of right subclavian artery. the patient was prescribed 4 mg PRN 4-6 HR dilaudid at home by . Patient currently not on any pain medication as last time was almost a year when he was prescribed Dilaudid. Vascular surgeon evaluate the patient in the ED and they stated no vascular emergencies or intervention to be done now, and the patient can follow-up as an outpatient with them and with the neurosurgeon as they think his presentation is likely due to cervical stenosis exacerbation. Physical examination, lab and imaging as above. Problem list: -Severe pain due to cervical stenosis -compression applied to the right subclavian artery -Generalized weakness -Hyperglycemia Plan: -Admit patient to general medicine floor -Vitals every shift -Start the patient on Lyrica 50 mg 3 times a day -1 mg IV Dilaudid every 3 as needed for severe pain -Patient will need MRI for further evaluation and assessment. -Neurosurgery consultation in a.m. -Physical therapy consultation in a.m. -Carbohydrate consistent diet, Accu-Chek, insulin sliding scale -Hold off metformin, Continue home medication -Pain pathway -DVT prophylaxis: subcutaneous Lovenox -Full code
[2018-01-06 04:00] VITALS: BP 132/80
[2018-01-06 08:10] LABS: ABSOLUTE BASOPHIL COUNT 0 /CUMM (0.0-0.2); ABSOLUTE EOSINOPHIL COUNT 0.2 /CUMM (0.0-0.7); ABSOLUTE GRANULOCYTE CT 5.7 /CUMM (1.4-6.5); ABSOLUTE LYMPH COUNT 2.2 /CUMM (1.2-3.4); ABSOLUTE MONOCYTE COUNT 0.5 /CUMM (0.10-0.60); BASOPHIL % 0.3 % (0.0-2.0); EOSINOPHIL % 2.3 % (0-5); GRANULOCYTE % 66.2 % (42.2-75.2); HEMATOCRIT 41.3 % (42-52); MEAN CORPUSCULAR HGB 27.9 PG (27.0-31.0); MEAN CORPUSCULAR HGB CONC 33.3 G/DL (33.0-37.0); MEAN CORPUSCULAR VOLUME 83.8 FL (80.0-94.0); MEAN PLATELET VOLUME 8.5 FL (7.4-10.4); PLATELET COUNT 233 /CUMM (130-400); RBC DISTRIBUTION WIDTH 13.3 % (11.5-14.5); RED BLOOD CELL CT 4.93 /CUMM (4.70-6.10); WHITE BLOOD CELL COUNT 8.6 /CUMM (4.8-10.8)
--- NOTE | 2018-01-06 11:25 | PN- Att Addend ---
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 Pain is poorly controlled. Pulses intact in both arms, mild cervical soft tissue tenderness, decreased sensatrion of the right arm with poor motor function. Plan - Continue as observation in general medicine - MRI cervical spine - Neurosurgery consult - Follow vascular surgery recommendations for CTA arm findings - Continue home medications - IV Morphine and Dilaudid for pain - Lyrica, Motrin, PPI - DVT PPx - Anticipated discharge pending neurosurgery evaluation following MRI
--- NOTE | 2018-01-06 13:54 | MRI REPORT ---
EXAMINATION: MR CERVICAL SPINE WITHOUT CONTRAST CLINICAL INFORMATION: Cervical stenosis. Pain and numbness. COMPARISON: Cervical spine CT 12/05/2016 and cervical spine MRI 06/02/2013. TECHNIQUE: MRI of the cervical spine was performed using routine sequences without contrast. FINDINGS: There is rotatory levoscoliosis in the cervical spine and dextroscoliotic curvature centered just below the cervical thoracic junction. There is no significant listhesis in the sagittal plane. The vertebral body heights are maintained. There is no acute compression fracture. There is mild edema in the superior endplate of C7. There is intervertebral disc height loss at C5-C6 with the remaining disc heights maintained. The cervical cord signal is grossly normal although motion artifact limits this evaluation. Axial level by level evaluation is limited due to significant motion artifact on the axial T2-weighted images. There is multilevel disc osteophyte complexes, uncovertebral hypertrophy, and facet arthropathy. Neural foraminal stenosis appears most advanced on the right more than left at C4-C5, on the right at C5-C6, and on the right at C6-C7. The visualized intracranial structures are within normal limits. The right internal carotid artery flow void and right vertebral artery flow voids appear absent but the appearance appears unchanged compared to the MRI of 06/02/2013. IMPRESSION: 1. Somewhat limited study due to motion artifact which degrades nearly all of the sequences. 2. No significant spinal canal stenosis or definite cord signal abnormality. 3. Moderate to severe multilevel degenerative spondylotic changes superimposed on rotatory dextroscoliotic curvature. 4. Multilevel neural foraminal stenosis which appears most advanced on the right more than left at C4-C5, on the right at C5-C6, and on the right at C6-C7. 5. The right ICA and vertebral artery flow voids appear absent but this finding appears unchanged since 06/02/2013.
[2018-01-06 14:26] LABS: ABSOLUTE BASOPHIL COUNT 0 /CUMM (0.0-0.2); ABSOLUTE EOSINOPHIL COUNT 0.1 /CUMM (0.0-0.7); ABSOLUTE GRANULOCYTE CT 7.3 /CUMM (1.4-6.5); ABSOLUTE LYMPH COUNT 2.3 /CUMM (1.2-3.4); ABSOLUTE MONOCYTE COUNT 0.6 /CUMM (0.10-0.60); BASOPHIL % 0.3 % (0.0-2.0); EOSINOPHIL % 1.4 % (0-5); GRANULOCYTE % 70.4 % (42.2-75.2); HEMATOCRIT 42.5 % (42-52); MEAN CORPUSCULAR HGB 27.7 PG (27.0-31.0); MEAN CORPUSCULAR HGB CONC 33.3 G/DL (33.0-37.0); MEAN CORPUSCULAR VOLUME 83.2 FL (80.0-94.0); MEAN PLATELET VOLUME 8.8 FL (7.4-10.4); PLATELET COUNT 252 /CUMM (130-400); RBC DISTRIBUTION WIDTH 13.4 % (11.5-14.5); RED BLOOD CELL CT 5.11 /CUMM (4.70-6.10); WHITE BLOOD CELL COUNT 10.4 /CUMM (4.8-10.8)
[2018-01-06 14:49] VITALS: BP 172/92
[2018-01-06] MEDS ORDERED: IBUPROFEN600 M1 PO (14:54)
[2018-01-06] MEDS ORDERED: LYRICA50 M1 PO (14:54)
[2018-01-06] MEDS ORDERED: LIDODERM1 EACH EXT (14:54)
[2018-01-06 17:00] VITALS: BP 132/80
[2018-01-06 22:25] VITALS: BP 130/80
--- NOTE | 2018-01-06 22:41 | Cons- Neurosurgical ---
General Information and HPI Consulting Request Date of Consult: 01/06/18 Requested By: Renan Arceo MD Reason for Consult: Right arm and shoulder pain and weakness Source of Information: patient, old records Exam Limitations: no limitations History of Present Illness: Mr. Burks is a 52-year-old male who presented 2 days ago with worsening right arm pain that started last . He has a known chronic right upper extremity numbness and weakness that has been progressively worsening since his apical right neck and back dissection for malignant neoplasm. He states that his present weakness and muscular dysfunction to the right upper extremity something that he has lived with for many years however he is more concerned with the worsening pain that he states extends from his shoulder to his wrist. CTA of the right upper extremity demonstrates some areas of narrowing and occlusion due to intraluminal plaque is relatively unchanged from imaging from 2013. MRI of the cervical spine done yesterday demonstrates scoliosis and foraminal stenosis for which neurosurgery has been called. Of note the patient states that the pain that he had upon arrival is much less today Allergies/Medications Allergies: Coded Allergies: acetaminophen (From Percocet) (Intermediate, ITCHING 07/28/16) oxycodone (From Percocet) (Intermediate, ITCHING 07/28/16) Home Med List: Cholecalciferol (Vitamin D3) 1,000 UNIT TABLET 1 TAB PO DAILY VITAMIN SUPPORT (Reported) Ibuprofen 600 MG TABLET 600 MG PO 4 TIMES/DAY PRN PAIN SCALE 4-6 (MODERATE) Insulin Degludec (Tresiba Flextouch U-200) 200 UNIT/ML (3 ML) INSULN.PEN DIABETES (Reported) Lidocaine (Lidoderm) 5 % ADH..PATCH 1 PAT EXT DAILY PRN Neck pain Please apply to neck for pain Lisinopril 40 MG TABLET 1 TAB PO DAILY HEART (Reported) Metformin HCl 1,000 MG TABLET 1 TAB PO BID DIABETES (Reported) Pregabalin (Lyrica) 50 MG CAPSULE 50 MG PO TID Neuropathic pain Past History Medical History Blood Transfusion Hx: Yes Neurological: NONE Cardiovascular: hyperlipidemia Respiratory: asthma Gastrointestinal: pancreatitis Psychiatric: insomnia Endocrine: diabetes Cancer(s): UNKNOWN CA Surgical History Pertinent Surgical History: 1 Psychosocial History Services at Home: None Smoking Status: Former Smoker Exam & Diagnostic Data Vital Signs and I&O Vital Signs Date Time Temp Pulse Resp B/P B/P Pulse O2 O2 Flow FiO2 Mean Ox Delivery Rate 01/065 98.1 93 19 130/80 93 Room Air 01/06 1700 132/80 01/06 1449 98.0 101 20 172/92 95 01/06 0400 98.8 84 18 132/80 91 Room Air 01/06 0258 Room Air Intake & Output 01/06 1600 01/06 0800 01/06 0000 01/05 1600 01/05 0800 01/05 0000 Intake Total 600 480 Output Total 680 Balance -80 480 Intake, Oral 600 480 Output, Urine 680 Patient 190 lb 190 lb Weight Weight Reported by Patient Measurement Method Physical Exam General Appearance: alert, awake, anxious Head: atraumatic Eyes: Bilateral: PERRL. Neck: limited range of motion, extensive right neck scarring with absent right clavicle and muscle wasting Respiratory: normal breath sounds Cardiovascular: regular rate/rhythm Gastrointestinal: normal bowel sounds, soft, non-tender Extremities: right hand clawing, 2/5 wrist extension on the 3/5 elbow extension him a deltoid weakness, decreased sensation from midforearm to fingertips Last 24 Hours of Labs: Laboratory Tests 01/06 01/06 1521 1245 Chemistry Sodium (137 - 145 mmol/L) 137 Potassium (3.5 - 5.1 mmol/L) 4.0 Chloride (98 - 107 mmol/L) 95 L Carbon Dioxide (22 - 30 mmol/L) 29 Anion Gap (5 - 16) 13 BUN (9 - 20 mg/dL) 25 H Creatinine (0.7 - 1.2 mg/dL) 1.0 Estimated GFR (>60 ml/min) > 60 BUN/Creatinine Ratio (7 - 25 %) 25.0 Troponin I (<0.11 ng/ml) < 0.01 Hematology CBC w Diff NO MAN DIFF REQ WBC (4.8 - 10.8 /CUMM) 10.4 RBC (4.70 - 6.10 /CUMM) 5.11 Hgb (14.0 - 18.0 G/DL) 14.1 Hct (42 - 52 %) 42.5 MCV (80.0 - 94.0 FL) 83.2 MCH (27.0 - 31.0 PG) 27.7 MCHC (33.0 - 37.0 G/DL) 33.3 RDW (11.5 - 14.5 %) 13.4 Plt Count (130 - 400 /CUMM) 252 MPV (7.4 - 10.4 FL) 8.8 Gran % (42.2 - 75.2 %) 70.4 Lymphocytes % (20.5 - 51.1 %) 21.9 Monocytes % (1.7 - 9.3 %) 6.0 Eosinophils % (0 - 5 %) 1.4 Basophils % (0.0 - 2.0 %) 0.3 Absolute Granulocytes (1.4 - 6.5 /CUMM) 7.3 H Absolute Lymphocytes (1.2 - 3.4 /CUMM) 2.3 Absolute Monocytes (0.10 - 0.60 /CUMM) 0.6 Absolute Eosinophils (0.0 - 0.7 /CUMM) 0.1 Absolute Basophils (0.0 - 0.2 /CUMM) 0 Urines Urinalysis LIGHT H Urine Color (YEL,AMB,STR) YEL Urine Clarity (CLEAR) CLEAR Urine pH (5.0 - 8.0) 6.0 Ur Specific [place] (1.001 - 1.035) >= 1.030 Urine Protein (NEG,<30 MG/DL) 30 H Urine Ketones (NEG) TRACE H Urine Nitrite (NEG) NEG Urine Bilirubin (NEG) NEG Urine Urobilinogen (0.1 - 1.0 EU/dl) 0.2 Ur Leukocyte Esterase (NEG) NEG Ur Microscopic SEDIMENT EXAMINED Urine WBC (0 - 2 /HPF) 1-3 H Urine Hemoglobin (NEG) NEG Urine Glucose (N MG/DL) >=1000 H 01/06 0729 Chemistry Sodium (137 - 145 mmol/L) 138 Potassium (3.5 - 5.1 mmol/L) 4.2 Chloride (98 - 107 mmol/L) 96 L Carbon Dioxide (22 - 30 mmol/L) 30 Anion Gap (5 - 16) 12 BUN (9 - 20 mg/dL) 22 H Creatinine (0.7 - 1.2 mg/dL) 0.8 Estimated GFR (>60 ml/min) > 60 BUN/Creatinine Ratio (7 - 25 %) 27.5 H Hematology CBC w Diff NO MAN DIFF REQ WBC (4.8 - 10.8 /CUMM) 8.6 RBC (4.70 - 6.10 /CUMM) 4.93 Hgb (14.0 - 18.0 G/DL) 13.8 L Hct (42 - 52 %) 41.3 L MCV (80.0 - 94.0 FL) 83.8 MCH (27.0 - 31.0 PG) 27.9 MCHC (33.0 - 37.0 G/DL) 33.3 RDW (11.5 - 14.5 %) 13.3 Plt Count (130 - 400 /CUMM) 233 MPV (7.4 - 10.4 FL) 8.5 Gran % (42.2 - 75.2 %) 66.2 Lymphocytes % (20.5 - 51.1 %) 25.7 Monocytes % (1.7 - 9.3 %) 5.5 Eosinophils % (0 - 5 %) 2.3 Basophils % (0.0 - 2.0 %) 0.3 Absolute Granulocytes (1.4 - 6.5 /CUMM) 5.7 Absolute Lymphocytes (1.2 - 3.4 /CUMM) 2.2 Absolute Monocytes (0.10 - 0.60 /CUMM) 0.5 Absolute Eosinophils (0.0 - 0.7 /CUMM) 0.2 Absolute Basophils (0.0 - 0.2 /CUMM) 0 Imaging Results: SERVICE DATE: 01/06/18- EXAM TYPE: MRI - MRI-CERVICAL SPINE EXAMINATION: MR CERVICAL SPINE WITHOUT CONTRAST CLINICAL INFORMATION: Cervical stenosis. Pain and numbness. COMPARISON: Cervical spine CT 12/05/2016 and cervical spine MRI 06/02/2013. TECHNIQUE: MRI of the cervical spine was performed using routine sequences without contrast. FINDINGS: There is rotatory levoscoliosis in the cervical spine and dextroscoliotic curvature centered just below the cervical thoracic junction. There is no significant listhesis in the sagittal plane. The vertebral body heights are maintained. There is no acute compression fracture. There is mild edema in the superior endplate of C7. There is intervertebral disc height loss at C5-C6 with the remaining disc heights maintained. The cervical cord signal is grossly normal although motion artifact limits this evaluation. Axial level by level evaluation is limited due to significant motion artifact on the axial T2-weighted images. There is multilevel disc osteophyte complexes, uncovertebral hypertrophy, and facet arthropathy. Neural foraminal stenosis appears most advanced on the right more than left at C4-C5, on the right at C5-C6, and on the right at C6-C7. The visualized intracranial structures are within normal limits. The right internal carotid artery flow void and right vertebral artery flow voids appear absent but the appearance appears unchanged compared to the MRI of 06/02/2013. IMPRESSION: 1. Somewhat limited study due to motion artifact which degrades nearly all of the sequences. 2. No significant spinal canal stenosis or definite cord signal abnormality. 3. Moderate to severe multilevel degenerative spondylotic changes superimposed on rotatory dextroscoliotic curvature. 4. Multilevel neural foraminal stenosis which appears most advanced on the right more than left at C4-C5, on the right at C5-C6, and on the right at C6-C7. 5. The right ICA and vertebral artery flow voids appear absent but this finding appears unchanged since 06/02/2013. DICTATED BY: Jesús Parr MD DATE/TIME DICTATED:01/06/181340 COOK LARDER:KAYE DATE/TIME TRANSCRIBED:01/06/181340 Assessment/Plan Assessment/Plan Mr. Burks is a 52-year-old male worsening pain to right upper extremity for 1 week. He has a known history of extensive radical right neck dissection for malignant mass as a child. As a result has had decreased function to this right upper extremity for many years. Dr. Reyes has reviewed his images, and has also reviewed imaging from [facility], and has reviewed a multidisciplinary surgical evaluation and review done on Mr. Burks at [facility] in 2013. This multidisciplinary review showed imaging similar to that done on this admission area also the conclusion of this review stated that there was no valuable surgical option for Mr. Burks. Plan Dr. Ruelas discussed this case with the resident who she instructed to start prednisone and gabapentin. She will evaluate the patient in a.m. and provide further input relative to this long-standing chronic condition Consult Acknowledgment - Thank you for your consult request.
[2018-01-07 07:16] VITALS: BP 160/100
--- NOTE | 2018-01-07 07:44 | PN- Housestaff ---
Maya LEWIS,Dmitry 01/07/18 0742: Subjective Follow-up For: Brachial plexiopathy Subjective: No overnight events. He is still in pain, somewhat releived by pain regimen. Review of Systems Constitutional: Reports: no symptoms. EENTM: Reports: no symptoms. Cardiovascular: Reports: no symptoms. Respiratory: Reports: no symptoms. Gastrointestinal: Reports: no symptoms. Genitourinary: Reports: no symptoms. Musculoskeletal: Reports: no symptoms. Skin: Reports: no symptoms. Neurological/Psychological: Reports: see HPI. Hematologic/Endocrine: Reports: no symptoms. Immunologic/Allergic: Reports: no symptoms. Objective Last 24 Hrs of Vital Signs/I&O Vital Signs Date Time Temp Pulse Resp B/P B/P Pulse O2 O2 Flow FiO2 Mean Ox Delivery Rate 01/07 0716 98.7 90 20 160/100 95 Room Air 01/06 2225 98.1 93 19 130/80 93 Room Air 01/06 1700 132/80 01/06 1449 98.0 101 20 172/92 95 Intake & Output 01/07 0800 01/07 0000 01/06 1600 Intake Total 625 1275 Output Total 120 680 Balance 505 595 Intake, IV 225 75 Intake, Oral 400 1200 Number 1 Bowel Movements Output, Urine 120 680 Physical Exam General Appearance: Alert, Oriented X3, Cooperative, No Acute Distress Cardiovascular: Regular Rate, Normal S1, Normal S2 Lungs: Clear to Auscultation, Normal Air Movement Abdomen: Normal Bowel Sounds, Soft, No Tenderness Neurological: Stable R extremity weakness Extremities: No Edema Current Medications: Current Medications Sig/Isamar Start time Last Medication Dose Route Stop Time Status Admin Aspirin 81 MG DAILY 01/07 1000 AC PO Aspirin 81 MG BID 01/06 1000 DC 01/06 PO 0917 Dexamethasone 4 MG BID 01/06 1553 AC 01/06 PO 2213 Dextrose/Sodium 1,000 ML Q13H 01/06 1330 AC 01/07 Chloride IV 0508 Dextrose/Sodium 1,000 ML Q13H 01/06 1330 DC 01/06 Chloride IV 1756 Enoxaparin Sodium 40 MG DAILY 01/06 1000 AC 01/06 SC 0916 Hydrocodone Bitart/ 1 TAB Q6P PRN 01/06 0145 DC Acetaminophen PO Hydromorphone HCl 2 MG Q3P PRN 01/06 1015 DC 01/06 IV 1049 Hydromorphone HCl 1 MG Q3P PRN 01/06 0200 DC 01/06 IV 0645 Ibuprofen 600 MG 4 TIMES/DAY PRN 01/06 0830 DC 01/06 PO 0917 Ibuprofen 400 MG Q6P PRN 01/06 0145 DC PO Insulin Aspart 0 TIDAC 01/06 1200 AC 01/06 SC 1800 Insulin Aspart 0 TIDAC 01/06 0415 DC 01/06 SC 0409 Insulin Detemir 18 UNITS BID 01/06 1000 AC 01/06 SC 2213 Ketorolac 30 MG Q6 PRN 01/06 1600 AC 01/07 Tromethamine IV 0508 Lidocaine 1 PAT DAILY 01/06 1415 AC 01/07 EXT 0014 Lisinopril 40 MG DAILY 01/06 1000 AC 01/06 PO 0917 Morphine Sulfate 2 MG ONCE ONE 01/06 2230 DC 01/06 IV 01/06 2231 2244 Morphine Sulfate 2 MG Q4P PRN 01/06 1415 DC IV Morphine Sulfate 6 MG Q3P PRN 01/06 1015 DC IV Naloxone HCl 0.4 MG ONCE ONE 01/06 1230 DC 01/06 IV 01/06 1231 1355 Omeprazole 40 MG DAILY AC 01/07 0700 CAN PO Omeprazole 40 MG DAILY AC 01/06 1015 DC 01/06 PO 1354 Ondansetron HCl 4 MG ONCE ONE 01/06 1230 DC 01/06 IV 01/06 1231 1355 Pantoprazole Sodium 40 MG BID 01/06 2200 CAN IV Patient Medication 1 ED ONE ONE 01/06 1115 DC 01/06 Teaching ED 01/06 1116 1354 Pregabalin 50 MG .STK-MED ONE 01/06 2212 DC PO 01/06 2213 Pregabalin 50 MG TID 01/06 0147 AC 01/06 PO 2244 Senna/Docusate Sodium 2 TAB AT BEDTIME 01/06 2200 AC 01/06 PO 2213 Sucralfate 1,000 MG 4 TIMES/DAY 01/06 1526 DC PO Trimethobenzamide HCl 200 MG ONCE ONE 01/06 1345 DC IM 01/06 1346 Trimethobenzamide HCl 200 MG 4 TIMES/DAY PRN 01/06 0715 AC 01/06 IM 0711 Last 24 Hrs of Lab/Trever Results Last 24 Hrs of Labs/Mics: Laboratory Tests 01/06/18 1521: Urinalysis LIGHT H, Urine Color YEL, Urine Clarity CLEAR, Urine pH 6.0, Ur Specific [place] >= 1.030, Urine Protein 30 H, Urine Ketones TRACE H, Urine Nitrite NEG, Urine Bilirubin NEG, Urine Urobilinogen 0.2, Ur Leukocyte Esterase NEG, Ur Microscopic SEDIMENT EXAMINED, Urine WBC 1-3 H, Urine Hemoglobin NEG, Urine Glucose >=1000 H 01/06/18 1245: Anion Gap 13, Estimated GFR > 60, BUN/Creatinine Ratio 25.0, Troponin I < 0.01, CBC w Diff NO MAN DIFF REQ, RBC 5.11, MCV 83.2, MCH 27.7, MCHC 33.3, RDW 13.4, MPV 8.8, Gran % 70.4, Lymphocytes % 21.9, Monocytes % 6.0, Eosinophils % 1.4, Basophils % 0.3, Absolute Granulocytes 7.3 H, Absolute Lymphocytes 2.3, Absolute Monocytes 0.6, Absolute Eosinophils 0.1, Absolute Basophils 0 Assessment/Plan Assessment: 52M PMH neuropathy, hyper TG, radical dissection of right clavicle and soft tissue for malignant tumor as a child here with 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 Problem list: 1. Brachial plexopathy 2. Right bundle branch block #Brachial plexopathy: MRI revealed foraminal stenosis that does not correspond to clinical findings. After consulting with neurosurgery, it seems like the patient has a brachial plexopathy likely secondary to the radiation he received as a child. Neurosurgery board at [place] fully evaluated his case and there is no role for surgery. He would benefit from outpatient referral to pain management. -Referral to [facility] for pain management -Continue short course of dexamethasone -Continue pregabalin and ketorolac -Start gabapentin 300 mg at bedtime #Right bundle branch block: Incidental finding on EKG. Previous EKG shows this as well. -Referral to outpatient cardiology #Chronic medical problems: -Continue home meds DVT prophylaxis with enoxaparin consistent carbohydrate diet Full code Problem List: 1. Brachial plexopathy Pain Ratin Pain Location: Right arm Pain Goal: Remain pain free Pain Plan: see a/p Tomorrow's Labs & Rationales: Renan Seaman MD 01/07/18 1206: Attending MD Review Statement Attending Statement Attending MD Statement: examined this patient, discuss w/resident/PA/REVENUE ENFORCEMENT AGENT, agreed w/resident/PA/REVENUE ENFORCEMENT AGENT, reviewed EMR data (avail) Attending Assessment/Plan: 52M PMH neuropathy, hyper TG, radical dissection of right clavicle and soft tissue for malignant tumor as a child with chronic right upper extremity weakness and pain with worsening left paracervical pain, right neck, shoulder, and arm pain, with numbness of the right arm for 1 year and decreased function due to sequelae of past surgery. Pain is poorly controlled. Pulses intact in both arms, mild cervical soft tissue tenderness, decreased sensatrion of the right arm with poor motor function. MRI shows stenosis but no cord compression. Plan - Stable for discharge home - Outpatient neurosurgery and orthopedic follow up - Follow vascular surgery recommendations for CTA arm findings - Continue home medications - Lyrica, Medrol dose pack, NSAIDs for pain
--- NOTE | 2018-01-07 07:49 | PN- Neurosurgical ---
Surgical Brief Attending Note Brief Attending Note: Pt history and current presentation reviewed. He has been seen and examined. All films including MRI and prior cervical CT of last year extensively reviewed as well as prior [facility] records from [id number]. Pt with diffuse and chronic RUE weakness with more prominent distal vs proximal motor deficit c/w primary lower cervical, upper thoracic level. Imaging is inconsistent with this clinical exam with foraminal stenosis most prominently on the right at C3/4, C4/5 but not at C5/6, 6/7 or C7/T1. Therefore, the most likely etiology for pts exam is brachial plexopathy likely induced by childhood XRT to the right shoulder, clavicle. Additionally he has a prominent deformity of the neck and should girdle which may further contribute to his pain and mechanical dysfunction. I would recommend that pt be evalutated by a comprehensive interventional pipe bowl paint trimmer as an outpt and consider spinal cord stimulation for pain control. Neuropathic pain meds such as gabapentin or lyrica also appropriate and the dose may need to be titrated up to effect. Would discourage the use of prison opioids if possible. Call with questions. No further neurosurgical role indicated at this time.
--- NOTE | 2018-01-07 08:19 | Patient Discharge Instructions ---
Discharge Instructions General Discharge Information You were seen/treated for: Neural foraminal stenosis Watch for these problems: Fever, chest pain, shortness of breath Special Instructions: Please take all medications as directed. Please follow-up with [facility] for pain control. Please follow up with cardiology and primary care as well. Diet Continue normal diet: Yes Activity Full Activity/No Limits: Yes Acute Coronary Syndrome Inclusion Criteria At DC or during hospital stay patient has or had the following: ACS DIAGNOSIS No Discharge Core Measures Meds if any: Prescribed or Continued at Discharge Meds if any: NOT Prescribed or Continued at Discharge Congestive Heart Failure Inclusion Criteria At DC or during hospital stay patient has or had the following: CHF DIAGNOSIS No Discharge Core Measures Meds if any: Prescribed or Continued at Discharge Meds if any: NOT Prescribed or Continued at Discharge Cerebrovascular accident Inclusion Criteria At DC or during hospital stay patient has or had the following: CVA/TIA Diagnosis No Discharge Core Measures Meds if any: Prescribed or Continued at Discharge Meds if any: NOT Prescribed or Continued at Discharge Venous thromboembolism Inclusion Criteria VTE Diagnosis No VTE Type NONE VTE Confirmed by (Test) NONE Discharge Core Measures - Per Current guidelines, there needs to be overlap - treatment for the first 5 days of Warfarin therapy. - If discharged on Warfarin prior to 5 days of - overlap therapy, the patient will need to be - assessed for post discharge needs including - *Post discharge parental anticoagulation - *Warfarin and/or parental anticoagulation education - *Follow up date to check INR post discharge At least 5 days overlap therapy as Inpatient No Meds if any: Prescribed or Continued at Discharge Note: Overlap Therapy is Warfarin and Anticoagulant Meds if any: NOT Prescribed or Continued at Discharge
[2018-01-07] MEDS ORDERED: GABAPENTIN300 M2 PO ×2 (08:20→10:37)
[2018-01-07] MEDS ORDERED: DEXAMETHASONE4 M1 PO ×2 (08:22→10:37)
[2018-01-07 08:50] VITALS: BP 160/100
[2018-01-07] MEDS ORDERED: LYRICA50 M1 PO (10:37)
== END 2018-01-07 12:52 ==
LOC: ERH 10:21 → 2NA 01-06 00:02 → ERHI 01-06 00:02 → ENRESERV 01-06 01:55 → 2NA 01-06 03:28 → ENPENDDIS 01-07 10:35 → ENTRNSPT 01-07 12:28 → EDTRNSPT 01-07 12:39 → EDTRNSPTSTS 01-07 12:39 → CMPTRNSPT 01-07 12:49 → 2NA 01-07 12:52
PROVIDERS: Internal Medicine Hematology & Oncology; Physician Assistant Medical
DX: G54.0 Brachial plexus disorders (principal); E11.40 Type 2 diabetes mellitus with diabetic neuropathy, unspecified; Z79.84 Long term (current) use of oral hypoglycemic drugs; Z79.4 Long term (current) use of insulin; E78.5 Hyperlipidemia, unspecified; G47.00 Insomnia, unspecified; E78.1 Pure hyperglyceridemia; R53.1 Weakness; I45.10 Unspecified right bundle-branch block; M41.82 Other forms of scoliosis, cervical region; Z85.831 Personal history of malignant neoplasm of soft tissue; J45.909 Unspecified asthma, uncomplicated; M48.02 Spinal stenosis, cervical region
CPT/HCPCS: 72141; 36415; 81001; 82436; 93005; 93010; 96372; 96374; 96375; 96376; 97116-GO; 97161-GP; G0378; J1650; J1885; J2310; J2405; J3250; J3490; J7042